=== PATIENT | male | born 1975 | race Caucasian/White ===

== ENCOUNTER 2016-10-01 20:52 | Emergency (ER) | payer OTHER ==
[~2016-10-01] VITALS: Ht 185.4 cm; Wt 133.8 kg
--- NOTE | 2016-10-01 21:03 | NUR ---
Chad ruelas in [facility] - 10/01/[address] at [address] Giron evaluating patient
[2016-10-01 21:07] VITALS: BP 162/103
--- NOTE | 2016-10-01 21:09 | NUR ---
40Y BIB FAMILY C/O HIGH BLOOD PRESSURE, PT WAS TREATED AT [facility] TODAY AND WAS GIVEN CLONIDINE 0.1MG AT 7:43PM, BP AT WAS 189/117 PULSE 104. BP NOW 162/103 HR 105 NOW 21:07. PT IS NOT DIAPHORETIC, NO HEADACHE, NO DIZZINESS . PT DENIES N/V/D; SKIN IS PINK/WARM/DRY; AAOX4 WITH EVEN AND STEADY GAIT; LUNGS CLEAR BL; HR EVEN AND REGULAR; PT DENIES ANY FEVER, CP, SOB, OR COUGH AT THIS TIME; PATIENT STATES PAIN OF 0/10 AT THIS TIME; VSS; PATIENT POSITIONED FOR COMFORT; HOB ELEVATED; BEDRAILS UP X2; BED DOWN. ER MD MADE AWARE OF PT STATUS.
--- NOTE | 2016-10-01 21:10 | NUR ---
Chad ruelas in [facility] - 10/01/16 at [address] Giron evaluating patient at bedside.
--- NOTE | 2016-10-01 21:10 | NUR ---
Dr. Giron evaluating patient at triage
[2016-10-01 21:23] VITALS: BP 159/98
--- NOTE | 2016-10-01 21:23 | NUR ---
Patient discharged with v/s stable. Written and verbal after care instructions given and explained. Patient alert, oriented and verbalized understanding of instructions. Ambulatory with steady gait. All questions addressed prior to discharge. ID band removed. Patient advised to follow up with PMD. Rx of HCTZ 12.5MG given. Patient educated on indication of medication including possible reaction and side effects. Opportunity to ask questions provided and answered.
== END 2016-10-01 21:23 | disposition home or self-care (01) ==
LOC: MED 20:52
DX: I10 Essential (primary) hypertension (principal)

== ENCOUNTER 2020-10-09 21:20 | Emergency (ER) | payer MEDICAID, SELFPAY ==
[~2020-10-09] VITALS: Ht 182.9 cm; Wt 113.4 kg
[~2020-10-09 21:20] MED LIST: ASPI-1884 PO; ATOR20TA PO; LISI-487 PO; METF500T PO; METO25TA14 PO
[2020-10-09 21:43] VITALS: BP_SYST 175; BP_DIAS 100; BP_DIAS 99
[2020-10-09] MEDS ORDERED: ASPIRIN 81 MG TAB.CHEW PO ONE (22:10)
[2020-10-09] MEDS ORDERED: NITROGLYCERIN 0.4 MG TAB SL ONE (22:10)
[2020-10-09 22:25] LABS: BASOPHILS % (AUTO) 0.4 % (0.0-2.0); EOSINOPHILS # (AUTO) 0.1 K/uL (0-0.4); EOSINOPHILS % (AUTO) 0.9 % (0.0-4.0); HEMATOCRIT 42.4 % (36-52); HEMOGLOBIN 14.6 g/dL (12.0-18.0); LYMPHOCYTES # (AUTO) 2.7 K/uL (2.0-11.5); LYMPHOCYTES % (AUTO) 35.9 % (20.5-51.1); MEAN CORPUSCULAR HEMOGLOBIN 30 pg (27-31); MEAN CORPUSCULAR HGB CONC 35 g/dL (33-37); MEAN CORPUSCULAR VOLUME 85.9 fL (80-94); MONOCYTES # (AUTO) 0.5 K/uL (0.8-1.0); MONOCYTES % (AUTO) 6.1 % (1.7-9.3); NEUTROPHILS # (AUTO) 4.2 K/uL (1.8-7.7); NEUTROPHILS % (AUTO) 56.7 % (42.2-75.2); PLATELET COUNT (AUTO) 126 K/uL (140-450); RED BLOOD CELL COUNT(AUTO) 4.93 MIL/uL (4.20-6.10); RED CELL DISTRIBUTION WIDTH 13.3 % (11.6-13.7); WHITE BLOOD COUNT (AUTO) 7.4 K/uL (4.8-10.8)
[2020-10-09 22:29] LABS: CARBON DIOXIDE 29.9 mmol/L (21-32); POTASSIUM 3.9 mmol/L (3.5-5.1)
[2020-10-10 00:21] VITALS: BP 138/69
== END 2020-10-10 00:21 | disposition home or self-care (01) ==
LOC: MED 21:20
DX: R07.9 Chest pain, unspecified (principal); I11.9 Hypertensive heart disease without heart failure; E11.9 Type 2 diabetes mellitus without complications; Z79.899 Other long term (current) drug therapy; Z79.84 Long term (current) use of oral hypoglycemic drugs
CPT/HCPCS: 36415; 71045; 71275; 74174; 80048; 84484; 85025; 93005; 99285; Q9967

== ENCOUNTER 2021-01-04 00:35 | Emergency (ER) | payer MEDICAID, SELFPAY ==
[~2021-01-04] VITALS: Ht 175.3 cm; Wt 106.1 kg
[2021-01-04 00:48] VITALS: BP 162/100
--- NOTE | 2021-01-04 00:55 | NUR ---
EKG BEING PERFORM IN TRIAGE.
[2021-01-04] MEDS ORDERED: ASPIRIN 325 MG TAB PO ONE (01:00)
--- NOTE | 2021-01-04 01:04 | NUR ---
LABS COLLECTED IN TRIAGE BY [employer].
--- NOTE | 2021-01-04 01:08 | NUR ---
MEDICATIONS GIVEN ORDERED. PATIENT AMBUALTED TO LOBBY TO AWAIT BED AND RESULTS.
[2021-01-04 01:11] LABS: BASOPHILS % (AUTO) 0.4 % (0.0-2.0); EOSINOPHILS % (AUTO) 0.8 % (0.0-4.0); HEMOGLOBIN 15.2 g/dL (12.0-18.0); LYMPHOCYTES # (AUTO) 2.8 K/uL (2.0-11.5); LYMPHOCYTES % (AUTO) 43.7 % (20.5-51.1); MEAN CORPUSCULAR HEMOGLOBIN 31 pg (27-31); MEAN CORPUSCULAR HGB CONC 36 g/dL (33-37); MEAN CORPUSCULAR VOLUME 86.9 fL (80-94); MONOCYTES # (AUTO) 0.3 K/uL (0.8-1.0); MONOCYTES % (AUTO) 5.4 % (1.7-9.3); NEUTROPHILS # (AUTO) 3.2 K/uL (1.8-7.7); NEUTROPHILS % (AUTO) 49.7 % (42.2-75.2); PLATELET COUNT (AUTO) 119 K/uL (140-450); RED BLOOD CELL COUNT(AUTO) 4.84 MIL/uL (4.20-6.10); RED CELL DISTRIBUTION WIDTH 13.7 % (11.6-13.7); WHITE BLOOD COUNT (AUTO) 6.4 K/uL (4.8-10.8)
[2021-01-04 01:30] LABS: ALBUMIN 3.7 g/dL (3.4-5.0); ANION GAP 9.6 (8-16); CARBON DIOXIDE 29.2 mmol/L (21-32); CREATININE 1.2 mg/dL (0.6-1.3); POTASSIUM 3.8 mmol/L (3.5-5.1); TOTAL BILIRUBIN 0.6 mg/dL (0.0-1.0)
--- NOTE | 2021-01-04 01:37 | NUR ---
PATIENT AMBUALTED TO BED 1 WITH STEADY GAIT. 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
[2021-01-04 01:39] LABS: CREATINE KINASE MB 1.1 ng/mL (0-3.6)
--- NOTE | 2021-01-04 02:03 | NUR ---
45/M PATIENT BIB SELF FOR C/O SHARP CHEST PAIN RADIATING TO BACK. PATIENT STATES PAIN COMES AND GOES AND IS 10/. COVID+ X 4 MONTHS AGO. PMH: DM, HTN NKA
[2021-01-04] MEDS ORDERED: diazePAM 5 MG TAB PO ONE (03:15)
[2021-01-04] MEDS ORDERED: DIAZ5TAB7 PO (03:56)
[2021-01-04 04:04] VITALS: BP 153/97
--- NOTE | 2021-01-04 04:04 | NUR ---
Patient discharged with v/s stable. Written and verbal after care instructions given and explained. Patient alert, oriented and verbalized understanding of instructions. Ambulatory with to car. All questions addressed prior to discharge. ID band removed. Patient advised to follow up with PMD. Rx of VALIUM given. Patient educated on indication of medication including possible reaction and side effects. Opportunity to ask questions provided and answered.
== END 2021-01-04 04:04 | disposition home or self-care (01) ==
LOC: MED 00:35
DX: M54.9 Dorsalgia, unspecified (principal); R07.9 Chest pain, unspecified; F43.9 Reaction to severe stress, unspecified; E11.9 Type 2 diabetes mellitus without complications; I10 Essential (primary) hypertension; Z79.899 Other long term (current) drug therapy; Z79.84 Long term (current) use of oral hypoglycemic drugs; Z79.82 Long term (current) use of aspirin
CPT/HCPCS: 36415; 71045; 80053; 82550; 82553; 83690; 84484; 85025; 93005; 99285

== ENCOUNTER 2021-01-25 22:32 | Emergency (ER) | payer MEDICAID ==
[~2021-01-25] VITALS: Ht 180.3 cm; Wt 124.7 kg
[~2021-01-25 22:32] MED LIST changes: +DIAZ5TAB7 PO
[2021-01-25 22:36] VITALS: BP 175/105
--- NOTE | 2021-01-25 22:50 | NUR ---
EKG PERFORMED IN TRIAGE ROOM. EKG READS SINUS TACHYCARDIA @ 102
--- NOTE | 2021-01-25 22:59 | NUR ---
PT AMBULATORY TO BED #3
[2021-01-25 23:00] LABS: BASOPHILS % (AUTO) 0.5 % (0.0-2.0); EOSINOPHILS % (AUTO) 0.8 % (0.0-4.0); HEMATOCRIT 43.2 % (36-52); HEMOGLOBIN 15.2 g/dL (12.0-18.0); LYMPHOCYTES # (AUTO) 2.4 K/uL (2.0-11.5); LYMPHOCYTES % (AUTO) 39.6 % (20.5-51.1); MEAN CORPUSCULAR HEMOGLOBIN 31 pg (27-31); MEAN CORPUSCULAR HGB CONC 35 g/dL (33-37); MEAN CORPUSCULAR VOLUME 87.2 fL (80-94); MONOCYTES # (AUTO) 0.3 K/uL (0.8-1.0); MONOCYTES % (AUTO) 4.6 % (1.7-9.3); NEUTROPHILS # (AUTO) 3.3 K/uL (1.8-7.7); NEUTROPHILS % (AUTO) 54.5 % (42.2-75.2); PLATELET COUNT (AUTO) 123 K/uL (140-450); RED BLOOD CELL COUNT(AUTO) 4.95 MIL/uL (4.20-6.10); RED CELL DISTRIBUTION WIDTH 13.5 % (11.6-13.7)
--- NOTE | 2021-01-25 23:18 | NUR ---
45/M C/O LT SHOULDER PAIN X 1HR AGO. 05/22 PAIN AND DESCRIBES IT SHARP. PT STATES IT RADIATES TO LEFT SIDE OF HIS CHEST. NONCOMPLIANT WITH BP MEDS. DENIES ANY DIZZINESS, N/V/D AT THIS TIME. NKDA. PMH: DM, HTN.
[2021-01-25 23:34] LABS: ALBUMIN 3.4 g/dL (3.4-5.0); ANION GAP 14.1 (8-16); CARBON DIOXIDE 27.7 mmol/L (21-32); CREATININE 1.2 mg/dL (0.6-1.3); POTASSIUM 3.8 mmol/L (3.5-5.1); TOTAL BILIRUBIN 0.5 mg/dL (0.0-1.0)
--- NOTE | 2021-01-25 23:37 | NUR ---
DR MAKI AT BEDSIDE EXAMINING PATIENT
[2021-01-25] MEDS ORDERED: lisinopriL 20 MG TAB PO ONE (23:50)
--- NOTE | 2021-01-25 23:52 | NUR ---
RADIOLOGY AT BEDSIDE
--- NOTE | 2021-01-26 02:09 | NUR ---
Patient discharged with v/s stable. Written and verbal after care instructions given and explained. Patient verbalized understanding. Ambulatory with steady gait. All questions addressed prior to discharge. Advised to follow up with PMD.
[2021-01-26 02:10] VITALS: BP 161/91
== END 2021-01-26 02:09 | disposition home or self-care (01) ==
LOC: MED 22:32
DX: R07.9 Chest pain, unspecified (principal); E11.65 Type 2 diabetes mellitus with hyperglycemia; I10 Essential (primary) hypertension; E78.5 Hyperlipidemia, unspecified; Z79.84 Long term (current) use of oral hypoglycemic drugs; Z79.899 Other long term (current) drug therapy; Z79.82 Long term (current) use of aspirin
CPT/HCPCS: 36415; 71045; 80053; 84484; 85025; 93005; 99285

== ENCOUNTER 2021-02-03 21:58 | Emergency (ER) | payer MEDICAID ==
[~2021-02-03] VITALS: Ht 180.3 cm; Wt 120.2 kg
[2021-02-03 22:12] VITALS: BP 180/101
[2021-02-03] MEDS ORDERED: KETOROLAC 60 MG/2 ML VIAL IM ONE (23:55)
[2021-02-03] MEDS ORDERED: CYCL-711 PO (23:57)
[2021-02-04 00:17] VITALS: BP 180/101
== END 2021-02-04 00:17 | disposition home or self-care (01) ==
LOC: MED 21:58
DX: M79.602 Pain in left arm (principal); E11.9 Type 2 diabetes mellitus without complications; I10 Essential (primary) hypertension; Z79.84 Long term (current) use of oral hypoglycemic drugs; Z79.899 Other long term (current) drug therapy
CPT/HCPCS: 73060; 73090; 82948; 96372; 99284; J1885

== ENCOUNTER 2021-05-04 14:39 | Emergency (ER) | payer MEDICAID ==
[~2021-05-04] VITALS: Ht 180.3 cm; Wt 124.7 kg
[~2021-05-04 14:39] MED LIST changes: +ASPI-1749 PO; -ASPI-1884 PO; +CYCL-711 PO
[2021-05-04 14:51] VITALS: BP 169/100
--- NOTE | 2021-05-04 15:00 | NUR ---
45 y/o M BIB self c/o Right eye pain and double vision since Sunday. Patient states he woke up Sunday morning with a headache and R eye pain 8/10, pressure/constant, non-radiating. Patient also states nausea without vomiting. +Dizziness +headache. Denies fever, chills, vomiting. AccuChek 316. Seen at [facility] for same symptoms 05/03/2021, discharged with Benadryl, Zofran, Ibuprofen. BP 169/100 states hasn't taken BP medications today. PMH: DM, HTN, neuropathy Meds: lisinopril, Metformin NKA SX: Denies
--- NOTE | 2021-05-04 15:00 | NUR ---
Patient in lobby for next available bed.
--- NOTE | 2021-05-04 15:15 | NUR ---
Patient to chair B
[2021-05-04] MEDS ORDERED: HYDROcodone/APAP 5/325 MG 1 TAB TAB PO ONE (15:25)
--- NOTE | 2021-05-04 15:28 | NUR ---
Patient transported to CT by wheelchair
[2021-05-04] MEDS ORDERED: ACET-9500 PO (16:29)
--- NOTE | 2021-05-04 16:40 | NUR ---
Patient discharged with v/s stable. Written and verbal after care instructions ABOUT DM TYPE 2, MIGRAINE HEADACHE, AND HTN given and explained. Patient alert, oriented and verbalized understanding of instructions. Ambulatory with steady gait. All questions addressed prior to discharge. ID band removed. Patient advised to follow up with PMD. Rx of EXCEDRIN MIGRAINE CAPLET given. Patient educated on indication of medication including possible reaction and side effects. Opportunity to ask questions provided and answered.
== END 2021-05-04 16:35 | disposition home or self-care (01) ==
LOC: MED 14:39
DX: R51.9 Headache, unspecified (principal); E11.9 Type 2 diabetes mellitus without complications; I10 Essential (primary) hypertension; Z79.84 Long term (current) use of oral hypoglycemic drugs; Z79.82 Long term (current) use of aspirin; Z79.899 Other long term (current) drug therapy; Z91.14 Patient's other noncompliance with medication regimen
CPT/HCPCS: 70450; 99284

== ENCOUNTER 2021-09-22 21:59 | Emergency (ER) | payer MEDICAID ==
[~2021-09-22 21:59] MED LIST changes: +ACET-9500 PO; -DIAZ5TAB7 PO; +DIAZ5TAB8 PO
--- NOTE | 2021-09-22 21:59 | NUR ---
PT CALLED FOR THE FIRST TIME FOR TRIAGE, NO ANSWER.
--- NOTE | 2021-09-22 22:09 | NUR ---
PT CALLED FOR THE SECOND TIME FOR TRIAGE, NO ANSWER.
--- NOTE | 2021-09-22 22:19 | NUR ---
PT CALLED FOR THE THIRD TIME FOR TRIAGE, NO ANSWER. PT LWBS. MADE AWARE.
== END 2021-09-22 22:08 | disposition left against medical advice (07) ==
LOC: MED 21:59
DX: R05.9 Cough, unspecified (principal); R06.02 Shortness of breath; Z53.21 Procedure and treatment not carried out due to patient leaving prior to being seen by health care provider

== ENCOUNTER 2022-12-20 20:19 | Emergency (ER) | payer MEDICAID ==
[~2022-12-20] VITALS: Ht 180.3 cm; Wt 127.0 kg
[~2022-12-20 20:19] MED LIST changes: +ACET-8001 PO; -ACET-9500 PO; +METF-346 PO; -METF500T PO
[2022-12-20 20:25] VITALS: BP 169/96
--- NOTE | 2022-12-20 20:25 | NUR ---
TO BED AMBULATORY
[2022-12-20] MEDS ORDERED: HYDROcodone/APAP 5/325 MG 1 TAB TAB PO ONE (20:50)
--- NOTE | 2022-12-20 20:50 | NUR ---
Pt refused norco and requested for different pain medication, ERMD made aware and new orders received.
[2022-12-20] MEDS ORDERED: KETOROLAC 60 MG/2 ML VIAL IM ONE (21:00)
[2022-12-20 21:04] LABS: BASOPHILS % (AUTO) 0.6 % (0.0-2.0); EOSINOPHILS # (AUTO) 0.1 K/uL (0-0.4); EOSINOPHILS % (AUTO) 2.9 % (0.0-4.0); HEMATOCRIT 38.9 % (36-52); HEMOGLOBIN 13.4 g/dL (12.0-18.0); LYMPHOCYTES # (AUTO) 1.4 K/uL (2.0-11.5); LYMPHOCYTES % (AUTO) 26.9 % (20.5-51.1); MEAN CORPUSCULAR HEMOGLOBIN 30 pg (27-31); MEAN CORPUSCULAR HGB CONC 34 g/dL (33-37); MEAN CORPUSCULAR VOLUME 86.1 fL (80-94); MONOCYTES # (AUTO) 0.7 K/uL (0.8-1.0); NEUTROPHILS # (AUTO) 2.9 K/uL (1.8-7.7); NEUTROPHILS % (AUTO) 56.6 % (42.2-75.2); PLATELET COUNT (AUTO) 126 K/uL (140-450); RED BLOOD CELL COUNT(AUTO) 4.51 MIL/uL (4.20-6.10); RED CELL DISTRIBUTION WIDTH 13.8 % (11.6-13.7)
[2022-12-20 21:23] LABS: ALBUMIN 3.3 g/dL (3.4-5.0); ANION GAP 9.1 (8-16); CARBON DIOXIDE 31.1 mmol/L (21-32); CREATININE 1.1 mg/dL (0.6-1.3); POTASSIUM 4.2 mmol/L (3.5-5.1); TOTAL BILIRUBIN 0.4 mg/dL (0.0-1.0)
[2022-12-20] MEDS ORDERED: AMOX875T3 PO (21:36)
[2022-12-20] MEDS ORDERED: MUC600 PO (21:36)
[2022-12-20] MEDS ORDERED: IBUP-2213 PO (21:36)
[2022-12-20] MEDS ORDERED: TRAM50TA3 PO (21:36)
--- NOTE | 2022-12-20 21:45 | NUR ---
Swabs collected sent to lab
--- NOTE | 2022-12-20 21:54 | NUR ---
ERMD by bedside at this time
[2022-12-20 21:57] VITALS: BP 140/80
--- NOTE | 2022-12-20 21:57 | NUR ---
Patient discharged with v/s stable. Written and verbal after care instructions given and explained. New rx amoxicillin, ibuprofen, mucinex, and tramadol. Patient verbalized understanding. Ambulatory with steady gait. All questions addressed prior to discharge. Advised to follow up with PMD.
== END 2022-12-20 21:57 | disposition home or self-care (01) ==
LOC: MED 20:19
DX: R07.9 Chest pain, unspecified (principal); Z20.822 Contact with and (suspected) exposure to COVID-19; J02.9 Acute pharyngitis, unspecified; I25.10 Atherosclerotic heart disease of native coronary artery without angina pectoris; I10 Essential (primary) hypertension; E11.9 Type 2 diabetes mellitus without complications; Z79.4 Long term (current) use of insulin; Z79.899 Other long term (current) drug therapy
CPT/HCPCS: 36415; 71045; 80053; 83880; 84484; 85025; 87426; 93005; 96372; 99285; J1885; Q0092

== ENCOUNTER 2024-03-17 15:27 | Emergency (ER) | payer MEDICAID, OTHER ==
[~2024-03-17] VITALS: Ht 182.9 cm; Wt 125.0 kg
[~2024-03-17 15:27] MED LIST changes: +AMOX875T3 PO; +IBUP-2213 PO; -LISI-487 PO; +LISI-953 PO; +MUC600 PO; +TRAM50TA3 PO
[2024-03-17 15:33] VITALS: BP 185/100; PULSE 90; RESP 18; TEMP 97.8; O2SAT 97
[2024-03-17] MEDS ORDERED: CEPH-588 PO (16:36)
[2024-03-17] MEDS ORDERED: METF-346 PO (16:36)
[2024-03-17] MEDS ORDERED: AMLO5TAB PO (16:36)
[2024-03-17] MEDS ORDERED: LISI40TA12 PO (16:36)
[2024-03-17] MEDS ORDERED: DOXY-690 PO (16:36)
[2024-03-17] MEDS ORDERED: LEVO750T75 PO (16:36)
== END 2024-03-17 16:49 | disposition home or self-care (01) ==
LOC: MED 15:27
DX: T63.511A Toxic effect of contact with stingray, accidental (unintentional), initial encounter (principal); E11.9 Type 2 diabetes mellitus without complications; I10 Essential (primary) hypertension; Z79.899 Other long term (current) drug therapy; Z79.82 Long term (current) use of aspirin; Y92.89 Other specified places as the place of occurrence of the external cause
CPT/HCPCS: 90471; 90715; 99283